=== PATIENT | male | born 1975 | race African-American/Black ===

== ENCOUNTER 2018-10-25 08:18 | Emergency (ER) | payer OTHER ==
[~2018-10-25] VITALS: Ht 177.8 cm; Wt 83.9 kg
[2018-10-25] MEDS ORDERED: KETOROLAC TROMETHAMINE 30 MG/ML VIAL IV STA (08:57)
[2018-10-25] MEDS ORDERED: CLINDAMYCIN PHOS 900MG/ 50ML 50 ML IV SCH (09:00)
[2018-10-25] MEDS ORDERED: DEXAMETHASONE SOD PHOS 10 MG/1 ML VIAL IV ONE (09:00)
[2018-10-25] MEDS ORDERED: SODIUM CHLORIDE 0.9% 1000ML 1,000 ML IV SCH (09:00)
--- NOTE | 2018-10-25 11:46 | Diagnostic Imaging Report ---
Examination:CT SOFT TISSUE NECK WITH CONTRAST History: Neck and throat swelling; soar throat. Comparison studies: None Technique: Axial images from the skull base to the thoracic inlet Coronal and sagittal reformatted images. Dose modulation, iterative reconstruction, and/or weight based adjustment of the mA/kV was utilized to reduce the radiation dose to as low as reasonably achievable. Intravenous contrast: 100mL of ISOVUE 370. Findings: Soft tissues: No abnormalities. Aerodigestive tract: A large 3.6 x 1.9 x 2.2cm (superoinferior x anteroposterior x transverse dimensions) rim enhancing soft tissue abscess is identified in the left tonsil. Lymph nodes: There is reactive left supra- and infrahyoid homogenous adenopathy. Vessels: Arteries and veins are patent. Thyroid gland: Normal in size and homogeneous. Submandibular glands: Normal in size and homogeneous. Parotid glands: Normal in size and homogeneous. Orbits: No abnormalities. Paranasal sinuses: Clear. Temporal bones: No abnormalities. Skull base and facial bones: Intact. Cervical spine: Diffuse disc osteophytes at C5-C6 and C6-C7 without canal stenosis. Severe right foraminal stenosis at C6-C7. No disc bulge or herniation or canal stenosis. IMPRESSION: Large (3.6 x 1.9 x 2.2cm) left tonsil abscess with left neck reactive adenopathy. Signed by: Dr. Ruth Bales M.D. on 10/25/2018 11:42 AM
[2018-10-25] MEDS ORDERED: CEFTRIAXONE SOD 1 GM VIAL IM ONE (12:15)
== END 2018-10-25 15:00 | disposition short-term general hospital (02) ==
LOC: FSED 08:18
DX: J36 Peritonsillar abscess (principal); R73.9 Hyperglycemia, unspecified
CPT/HCPCS: 70491; 80053; 83518; 85025; 86308; 87400; 99285; J0696; J1100; J1885

== ENCOUNTER 2024-08-20 18:04 | Emergency (ER) | payer SELFPAY ==
[~2024-08-20] VITALS: Ht 177.8 cm; Wt 83.9 kg
[2024-08-20 18:17] VITALS: TEMP 102.7
[2024-08-20] MEDS: IBUPROFEN 400 MG TAB PO ONE (18:32)
[2024-08-20] MEDS: ACETAMINOPHEN 325 MG TAB PO ONE (18:33)
[2024-08-20 18:51] LABS: INFLUENZAE A&B ANTIGEN (RAPID) NEGATIVE (NEGATIVE)
[2024-08-20 18:57] LABS: RESPIRATORY SYNC. VIRUS NEGATIVE (NEGATIVE)
[2024-08-20 19:00] VITALS: PULSE 89; RESP 18; O2SAT 96
[2024-08-20] MEDS ORDERED: AZITHROMYCIN250 MG PO (19:06)
[2024-08-20] MEDS ORDERED: VENTOLIN HFA18 GM INH (19:06)
[2024-08-20] MEDS ORDERED: PREDNISONE20 MG PO (19:06)
== END 2024-08-20 19:15 | disposition home or self-care (01) ==
LOC: ER 18:12
DX: R50.9 Fever, unspecified (principal); J06.9 Acute upper respiratory infection, unspecified; R05.9 Cough, unspecified; R51.9 Headache, unspecified
CPT/HCPCS: 83518; 87070; 87400; 87420; 99282; U0002